=== PATIENT | female | born 1990 | race Caucasian/White ===

== ENCOUNTER 2017-11-03 16:23 | Emergency (ER) | payer OTHER ==
[~2017-11-03] VITALS: Ht 157.5 cm; Wt 64.9 kg
[2017-11-03 16:30] VITALS: BP 112/78
== END 2017-11-03 17:06 | disposition home or self-care (01) ==
LOC: ED 16:23
DX: K04.7 Periapical abscess without sinus (principal)

== ENCOUNTER 2019-12-19 10:14 | Emergency (ER) | payer OTHER ==
[~2019-12-19] VITALS: Ht 152.4 cm; Wt 67.1 kg
[2019-12-19 10:26] VITALS: Ht 152.4 cm; Wt 67.1 kg
[2019-12-19 12:54] VITALS: BP 130/78
== END 2019-12-19 12:54 | disposition home or self-care (01) ==
LOC: ED 10:14
DX: S13.4XXA Sprain of ligaments of cervical spine, initial encounter (principal); S46.912A Strain of unspecified muscle, fascia and tendon at shoulder and upper arm level, left arm, initial encounter; W03.XXXA Other fall on same level due to collision with another person, initial encounter; Y93.11 Activity, swimming; Y92.095 Swimming-pool of other non-institutional residence as the place of occurrence of the external cause; Y99.8 Other external cause status
CPT/HCPCS: J1885